=== PATIENT | female | born 1945 | race Caucasian/White ===

== ENCOUNTER → 2017-01-16 | Outpatient (CLI) | payer MEDICARE, BC, OTHER | LOC: RAD 10:25 | DX: M79.672 Pain in left foot (principal); M19.072 Primary osteoarthritis, left ankle and foot; M20.12 Hallux valgus (acquired), left foot ==

== ENCOUNTER → 2017-03-31 | Outpatient (CLI) | payer MEDICARE, BC, OTHER | LOC: LAB 08:06 | DX: Z00.00 Encounter for general adult medical examination without abnormal findings (principal); E03.4 Atrophy of thyroid (acquired); I10 Essential (primary) hypertension; Z13.220 Encounter for screening for lipoid disorders; Z11.59 Encounter for screening for other viral diseases ==

== ENCOUNTER → 2017-07-19 | Outpatient (CLI) | payer MEDICARE, BC, OTHER | LOC: LAB 08:25 | DX: E03.4 Atrophy of thyroid (acquired) (principal) ==

== ENCOUNTER → 2017-08-01 | Day surgery (SDC) | payer MEDICARE, BC, OTHER | LOC: MSO 11:06 | DX: Z12.11 Encounter for screening for malignant neoplasm of colon (principal); K63.5 Polyp of colon; Z80.0 Family history of malignant neoplasm of digestive organs; K57.30 Diverticulosis of large intestine without perforation or abscess without bleeding; I10 Essential (primary) hypertension; F32.9 Major depressive disorder, single episode, unspecified; E66.01 Morbid (severe) obesity due to excess calories; E07.9 Disorder of thyroid, unspecified | CPT/HCPCS: 00810; J3010; J7120 ==

== ENCOUNTER → 2018-04-13 | Outpatient (CLI) | payer MEDICARE, BC, OTHER ==
[2018-04-13 09:14] LABS: BASO # 0.1 (0.02-0.10); EOS # 0.3 (0.04-0.40); EOS % 4.6 % (1.0-5.0); HEMATOCRIT 41.6 % (37.0-47.0); HEMOGLOBIN 13.4 g/dL (12.5-16.0); LYMPH# 1.7 (1.50-4.00); MEAN CELL VOLUME 87 fl (78-100); MEAN CORPUSCULAR HEMOGLOBIN 28 pg (27-31); MEAN CORPUSCULAR HGB CONC 32 g/dL (33-37); MEAN PLATELET VOLUME 10.3 fl (7.4-10.4); MONO # 0.7 (0.20-0.80); NEU # 3.9 (1.40-6.50); PLATELET COUNT 284 K/mm3 (130-400); RED BLOOD COUNT 4.79 M/mm3 (4.10-5.30); WHITE BLOOD COUNT 6.7 K/mm3 (4.8-10.8)
[2018-04-13 09:26] LABS: BUN/CREATININE RATIO 15.7 (6.0-26.0); CALCIUM 9.2 mg/dL (8.4-10.2); POTASSIUM 4.4 mmol/L (3.6-5.0); TOTAL BILIRUBIN 0.6 mg/dL (0.2-1.3); TOTAL PROTEIN 7.9 g/dL (6.3-8.2)
== END ==
LOC: LAB 07:34
PROVIDERS: Nurse Practitioner Family
DX: Z00.00 Encounter for general adult medical examination without abnormal findings (principal); Z80.0 Family history of malignant neoplasm of digestive organs; I10 Essential (primary) hypertension; E03.4 Atrophy of thyroid (acquired)

== ENCOUNTER → 2019-04-24 | Outpatient (CLI) | payer MEDICARE, BC, OTHER ==
[2019-04-24 07:17] LABS: BASO # 0.1 (0.02-0.10); EOS # 0.4 (0.04-0.40); EOS % 5.3 % (1.0-5.0); HEMATOCRIT 41.9 % (37.0-47.0); HEMOGLOBIN 13.2 g/dL (12.5-16.0); LYMPH# 1.9 (1.50-4.00); MEAN CELL VOLUME 86 fl (78-100); MEAN CORPUSCULAR HEMOGLOBIN 27 pg (27-31); MEAN CORPUSCULAR HGB CONC 32 g/dL (33-37); MEAN PLATELET VOLUME 9.1 fl (7.4-10.4); MONO # 0.6 (0.20-0.80); NEU # 3.7 (1.40-6.50); PLATELET COUNT 294 K/mm3 (130-400); RED BLOOD COUNT 4.85 M/mm3 (4.10-5.30); RED CELL DISTRIBUTION WIDTH 14.3 % (11.5-14.5); WHITE BLOOD COUNT 6.7 K/mm3 (4.8-10.8)
[2019-04-24 08:09] LABS: ALBUMIN 3.8 g/dL (3.4-4.8); CALCIUM 9.5 mg/dL (8.3-10.5); POTASSIUM 4.6 mmol/L (3.5-5.1); TOTAL BILIRUBIN 0.4 mg/dL (0.2-1.2); TOTAL PROTEIN 7.4 g/dL (6.2-8.1)
== END ==
LOC: LAB 06:53
PROVIDERS: Physician Assistant
DX: Z01.419 Encounter for gynecological examination (general) (routine) without abnormal findings (principal); Z12.31 Encounter for screening mammogram for malignant neoplasm of breast; I10 Essential (primary) hypertension; F33.2 Major depressive disorder, recurrent severe without psychotic features; E03.9 Hypothyroidism, unspecified; K63.5 Polyp of colon

== ENCOUNTER → 2020-04-29 | Outpatient (CLI) | payer MEDICARE, BC, OTHER ==
[2020-04-29 07:40] LABS: BASO # 0.1 (0.02-0.10); EOS # 0.3 (0.04-0.40); EOS % 5.2 % (1.0-5.0); HEMATOCRIT 40.5 % (37.0-47.0); HEMOGLOBIN 13.1 g/dL (12.5-16.0); LYMPH# 1.7 (1.50-4.00); MEAN CELL VOLUME 86 fl (78-100); MEAN CORPUSCULAR HEMOGLOBIN 28 pg (27-31); MEAN CORPUSCULAR HGB CONC 32 g/dL (33-37); MEAN PLATELET VOLUME 9.2 fl (7.4-10.4); MONO # 0.6 (0.20-0.80); NEU # 2.9 (1.40-6.50); PLATELET COUNT 260 K/mm3 (130-400); RED BLOOD COUNT 4.71 M/mm3 (4.10-5.30); WHITE BLOOD COUNT 5.6 K/mm3 (4.8-10.8)
[2020-04-29 07:50] LABS: POTASSIUM 4.3 mmol/L (3.5-5.1)
[2020-04-29 07:51] LABS: ALBUMIN 3.9 g/dL (3.4-4.8)
[2020-04-29 07:52] LABS: CALCIUM 9.1 mg/dL (8.3-10.5)
[2020-04-29 07:53] LABS: TOTAL PROTEIN 7.2 g/dL (6.2-8.1)
[2020-04-29 07:55] LABS: TOTAL BILIRUBIN 0.4 mg/dL (0.2-1.2)
== END ==
LOC: LAB 07:22
PROVIDERS: Physician Assistant
DX: Z00.00 Encounter for general adult medical examination without abnormal findings (principal); I10 Essential (primary) hypertension; E03.9 Hypothyroidism, unspecified; E78.5 Hyperlipidemia, unspecified

== ENCOUNTER → 2021-04-29 | Outpatient (CLI) | payer MEDICARE, BC, OTHER ==
[2021-04-29 08:45] LABS: BASO # 0.08 (0.02-0.10); EOS # 0.31 (0.04-0.40); EOS % 5.8 % (1.0-5.0); HEMATOCRIT 40.3 % (37.0-47.0); LYMPH# 1.88 (1.50-4.00); MEAN CELL VOLUME 85 fl (78-100); MEAN CORPUSCULAR HEMOGLOBIN 27 pg (27-31); MEAN CORPUSCULAR HGB CONC 32 g/dL (33-37); MEAN PLATELET VOLUME 9.2 fl (7.4-10.4); MONO # 0.52 (0.20-0.80); NEU # 2.58 (1.40-6.50); PLATELET COUNT 268 K/mm3 (130-400); RED BLOOD COUNT 4.75 M/mm3 (4.10-5.30); RED CELL DISTRIBUTION WIDTH 14.1 % (11.5-14.5); WHITE BLOOD COUNT 5.4 K/mm3 (4.8-10.8)
[2021-04-29 08:48] LABS: POTASSIUM 4.4 mmol/L (3.5-5.1)
[2021-04-29 08:49] LABS: CALCIUM 8.9 mg/dL (8.3-10.5)
[2021-04-29 08:51] LABS: TOTAL PROTEIN 7.4 g/dL (6.2-8.1)
[2021-04-29 08:52] LABS: TOTAL BILIRUBIN 0.5 mg/dL (0.2-1.2)
== END ==
LOC: LAB 07:46
PROVIDERS: Physician Assistant
DX: Z13.1 Encounter for screening for diabetes mellitus (principal); Z00.00 Encounter for general adult medical examination without abnormal findings; E03.9 Hypothyroidism, unspecified; E78.5 Hyperlipidemia, unspecified; G61.82 Multifocal motor neuropathy; M16.11 Unilateral primary osteoarthritis, right hip; I10 Essential (primary) hypertension

== ENCOUNTER → 2022-04-28 | Outpatient (CLI) | payer MEDICARE, BC, OTHER ==
[2022-04-28 09:31] LABS: BASO # 0.08 K/mm3 (0.02-0.10); EOS # 0.32 K/mm3 (0.04-0.40); EOS % 4.4 % (1.0-5.0); HEMATOCRIT 41.2 % (37.0-47.0); LYMPH# 1.68 K/mm3 (1.50-4.00); MEAN CELL VOLUME 88 fl (78-100); MEAN CORPUSCULAR HEMOGLOBIN 28 pg (27-31); MEAN CORPUSCULAR HGB CONC 32 g/dL (33-37); MONO # 0.59 K/mm3 (0.20-0.80); NEU # 4.52 K/mm3 (1.40-6.50); PLATELET COUNT 252 K/mm3 (130-400); RED BLOOD COUNT 4.71 M/mm3 (4.10-5.30); RED CELL DISTRIBUTION WIDTH 13.7 % (11.5-14.5); WHITE BLOOD COUNT 7.2 K/mm3 (4.8-10.8)
[2022-04-28 09:36] LABS: POTASSIUM 4.5 mmol/L (3.5-5.1)
[2022-04-28 09:37] LABS: CALCIUM 8.9 mg/dL (8.3-10.5)
[2022-04-28 09:38] LABS: TOTAL PROTEIN 7.3 g/dL (6.2-8.1)
[2022-04-28 09:40] LABS: TOTAL BILIRUBIN 0.4 mg/dL (0.2-1.2)
[2022-04-30 04:12] LABS: CA-125 10.9 U/mL (0.0-35.0)
[2022-05-04 07:46] LABS: VITAMIN E 11.6 mg/L (())
== END ==
LOC: LAB 08:56
PROVIDERS: Physician Assistant
DX: Z13.1 Encounter for screening for diabetes mellitus (principal); Z12.73 Encounter for screening for malignant neoplasm of ovary; Z00.00 Encounter for general adult medical examination without abnormal findings; Z13.220 Encounter for screening for lipoid disorders; E03.9 Hypothyroidism, unspecified; K90.9 Intestinal malabsorption, unspecified; I10 Essential (primary) hypertension; R06.09 Other forms of dyspnea

== ENCOUNTER → 2022-05-19 | Day surgery (SDC) | payer MEDICARE, BC, OTHER | END | disposition home or self-care (01) | LOC: MSO 07:40 | DX: Z12.11 Encounter for screening for malignant neoplasm of colon (principal); D12.8 Benign neoplasm of rectum; Z80.0 Family history of malignant neoplasm of digestive organs; K57.30 Diverticulosis of large intestine without perforation or abscess without bleeding; E66.01 Morbid (severe) obesity due to excess calories; Z79.82 Long term (current) use of aspirin | CPT/HCPCS: 00811; J2704; J7120 ==

== ENCOUNTER → 2022-09-21 | Outpatient (CLI) | payer MEDICARE, BC, OTHER | LOC: RAD 09:59 | DX: M17.11 Unilateral primary osteoarthritis, right knee (principal) ==

== ENCOUNTER → 2023-12-19 | Outpatient (CLI) | payer MEDICARE, BC ==
[~2023-12-19] MED LIST: ASPIRIN 81M81 MG/TA2 PO; CALCIUM + D3 E1 EACH PO; CRANBERRY200 MG PO; FISH OIL + D31 EACH PO; LEVOTHYROXIN0.075 MG PO; LOSARTAN POTASS50 M1 PO; MELOXICAM15 MG PO; VITAMIN C500 M6 PO
[2023-12-19 09:54] LABS: BASO # 0.06 K/mm3 (0.02-0.10); EOS # 0.48 K/mm3 (0.04-0.40); EOS % 6.2 % (1.0-5.0); HEMATOCRIT 39.1 % (37.0-47.0); HEMOGLOBIN 12.5 g/dL (12.5-16.0); LYMPH# 2.05 K/mm3 (1.50-4.00); MEAN CELL VOLUME 90 fl (78-100); MEAN CORPUSCULAR HEMOGLOBIN 29 pg (27-31); MEAN CORPUSCULAR HGB CONC 32 g/dL (33-37); MEAN PLATELET VOLUME 8.6 fl (7.4-10.4); MONO # 0.71 K/mm3 (0.20-0.80); NEU # 4.43 K/mm3 (1.40-6.50); PLATELET COUNT 273 K/mm3 (130-400); RED BLOOD COUNT 4.37 M/mm3 (4.10-5.30); RED CELL DISTRIBUTION WIDTH 12.9 % (11.5-14.5); WHITE BLOOD COUNT 7.8 K/mm3 (4.8-10.8)
[2023-12-19 09:55] LABS: ALBUMIN 4.1 g/dL (3.4-4.8)
[2023-12-19 09:58] LABS: TOTAL PROTEIN 7.3 g/dL (6.2-8.1)
[2023-12-19 10:58] LABS: TOTAL BILIRUBIN 0.2 mg/dL (0.2-1.2)
== END ==
LOC: LAB 09:37
PROVIDERS: Physician Assistant
DX: Z01.818 Encounter for other preprocedural examination (principal)

== ENCOUNTER → 2024-06-20 | Outpatient (CLI) | payer MEDICARE, BC ==
[2024-06-20 07:39] LABS: BASO # 0.07 K/mm3 (0.02-0.10); EOS # 0.47 K/mm3 (0.04-0.40); EOS % 7.7 % (1.0-5.0); HEMATOCRIT 36.8 % (37.0-47.0); HEMOGLOBIN 11.8 g/dL (12.5-16.0); LYMPH# 1.69 K/mm3 (1.50-4.00); MEAN CELL VOLUME 88 fl (78-100); MEAN CORPUSCULAR HEMOGLOBIN 28 pg (27-31); MEAN CORPUSCULAR HGB CONC 32 g/dL (33-37); MEAN PLATELET VOLUME 8.8 fl (7.4-10.4); MONO # 0.53 K/mm3 (0.20-0.80); NEU # 3.36 K/mm3 (1.40-6.50); PLATELET COUNT 266 K/mm3 (130-400); RED BLOOD COUNT 4.18 M/mm3 (4.10-5.30); RED CELL DISTRIBUTION WIDTH 14.3 % (11.5-14.5); WHITE BLOOD COUNT 6.1 K/mm3 (4.8-10.8)
[2024-06-20 07:55] LABS: CALCIUM 9.4 mg/dL (8.3-10.5)
[2024-06-20 07:56] LABS: TOTAL PROTEIN 7.2 g/dL (6.2-8.1)
[2024-06-20 07:58] LABS: TOTAL BILIRUBIN 0.4 mg/dL (0.2-1.2)
[2024-06-22 06:38] LABS: CA-125 8.1 U/mL (0.0-38.1)
== END ==
LOC: LAB 07:18
PROVIDERS: Physician Assistant
DX: Z12.4 Encounter for screening for malignant neoplasm of cervix (principal); I10 Essential (primary) hypertension; E03.4 Atrophy of thyroid (acquired); K90.9 Intestinal malabsorption, unspecified; D64.9 Anemia, unspecified

== ENCOUNTER → 2024-08-22 | Outpatient (CLI) | payer MEDICARE, BC | LOC: RAD 11:56 | DX: R10.32 Left lower quadrant pain (principal) ==

== ENCOUNTER → 2024-12-10 | Outpatient (CLI) | payer MEDICARE, BC | LOC: MAMMO 10:54 | DX: Z12.31 Encounter for screening mammogram for malignant neoplasm of breast (principal) ==